=== PATIENT | male | born 1960 | race Caucasian/White ===

== ENCOUNTER 2020-03-22 11:13 | Inpatient (IN) | payer OTHER ==
[~2020-03-22] VITALS: Ht 180.3 cm; Wt 67.4 kg
[2020-03-22 12:14] LABS: BASOPHILS % (AUTO) 0.6 % (0.0-2.0); EOSINOPHILS % (AUTO) 0.1 % (1.0-6.0); HEMATOCRIT 42.1 % (41-53); LYMPHOCYTES # (AUTO) 0.8 K/uL (1.0-4.8); LYMPHOCYTES % (AUTO) 17.1 % (22.0-44.0); MEAN CORPUSCULAR HGB CONC 33.2 G/dL (31.0-37.0); MEAN CORPUSCULAR VOLUME 102 fL (80-100); MONOCYTES # (AUTO) 0.6 K/uL (0.1-1.0); MONOCYTES % (AUTO) 12.4 % (2.0-9.0); NEUTROPHILS # (AUTO) 3.4 K/uL (1.8-7.7); NEUTROPHILS % (AUTO) 69.8 % (40.0-70.0); RED BLOOD CELL COUNT(AUTO) 4.11 MIL/uL (4.50-5.90); RED CELL DISTRIBUTION WIDTH 13.9 % (11.5-14.5)
[2020-03-22 12:24] LABS: ANION GAP 16 mmol/L (8-16); CALCIUM, TOTAL 8.4 mg/dL (8.8-10.5); CARBON DIOXIDE 25 mmol/L (22-29); CHLORIDE 103 mmol/L (98-107); CREATININE 0.79 mg/dL (0.60-1.30); GLOMERULAR FILTR. RATE CALC > 60 mL/min (>60); GLUCOSE,RANDOM 98 mg/dL (70-110); POTASSIUM 3.9 mmol/L (3.5-5.1); SODIUM SERUM 144 mmol/L (136-145); UREA NITROGEN, BLOOD 17 mg/dL (7-18)
[2020-03-22 12:37] LABS: AMPHET/METH SCREEN,URINE NEGATIVE (NEGATIVE); BARBITURATE SCREEN, URINE NEGATIVE (NEGATIVE); BENZODIAZEPINES SCREEN,URINE NEGATIVE (NEGATIVE); CANNABINOID SCREEN,URINE NEGATIVE (NEGATIVE); COCAINE SCREEN,URINE NEGATIVE (NEGATIVE); METHADONE SCREEN, URINE NEGATIVE (NEGATIVE); OPIATE SCREEN,URINE POSITIVE (NEGATIVE)
[2020-03-22 12:39] LABS: PHENCYCLIDINE SCREEN,URINE NEGATIVE (NEGATIVE)
[2020-03-22 12:43] LABS: PLATELET COUNT (AUTO) 72 K/uL (150-450)
[2020-03-22 12:49] LABS: ALANINE AMINOTRANSFERASE 185 U/L (12-78); ALKALINE PHOSPHATASE 231 U/L (46-116); ASPARTATE AMINOTRANSFERASE 526 U/L (15-37); BILIRUBIN,TOTAL 2.3 mg/dL (0.1-1.0); TOTAL PROTEIN, SERUM 7.7 g/dL (6.4-8.2)
[2020-03-22 12:53] LABS: CREATINE KINASE, TOTAL ONLY 1115 U/L (39-308)
[2020-03-22] MEDS ORDERED: LOPERAMIDE HCL 2 MG CAPSULE PO PRN ×2 (14:00)
[2020-03-22] MEDS ORDERED: TUBERCULIN, PURIFIED PROTEIN DERIVATIVE 5 TU/0.1 ML SYRINGE ID ONE (14:00)
[2020-03-22] MEDS ORDERED: MAG HYDROX/AL HYDROX/SIMETH ES 30 ML SUSPENSION UDCUP PO PRN (14:00)
[2020-03-22] MEDS ORDERED: MAGNESIUM HYDROXIDE SUSPENSION 30 ML UDCUP PO PRN (14:00)
[2020-03-22] MEDS ORDERED: CYANOCOBALAMIN 1,000 MCG/ML VIAL IM ONE (14:00)
[2020-03-22] MEDS ORDERED: GuaiFENesin/D-METHORPHAN [SUGAR-FREE] 200-20MG/10 ML SYRUP UDCUP PO PRN (14:00)
[2020-03-22] MEDS ORDERED: PROMETHAZINE HCL 25 MG TABLET PO PRN (14:00)
[2020-03-22] MEDS ORDERED: LORazepam 1 MG TABLET PO ONE ×2 (14:15)
[2020-03-22] MEDS ORDERED: KETOROLAC TROMETHAMINE 10 MG TABLET PO ONE ×2 (14:15)
[2020-03-22] MEDS: THIAMINE 100 MG TABLET PO SCH (20:02)
[2020-03-22] MEDS: LORazepam 2 MG TABLET PO PRN (20:24)
[2020-03-22 21:30] VITALS: BP 134/87
[2020-03-22] MEDS: MIRTAZAPINE 15 MG TABLET PO SCH (22:04)
[2020-03-22 22:30] VITALS: BP 138/90
[2020-03-22 23:30] VITALS: BP 115/72
[2020-03-23] VITALS (10 sets, daily range): BP systolic 117–149; BP diastolic 66–79
[2020-03-23] MEDS: LORazepam 2 MG TABLET PO PRN ×2 (01:03→11:15)
[2020-03-23 07:38] LABS: INR 1.1 (0.9-1.1); PROTHROMBIN TIME 11.4 SEC (9.4-11.6)
[2020-03-23 07:53] LABS: ALANINE AMINOTRANSFERASE 144 U/L (12-78); ALBUMIN 3.6 g/dL (3.4-5.0); ALKALINE PHOSPHATASE 206 U/L (46-116); ANION GAP 9 mmol/L (8-16); ASPARTATE AMINOTRANSFERASE 374 U/L (15-37); BILIRUBIN,TOTAL 2.8 mg/dL (0.1-1.0); CALCIUM, TOTAL 8.9 mg/dL (8.8-10.5); CARBON DIOXIDE 28 mmol/L (22-29); CHLORIDE 99 mmol/L (98-107); CHOL/HDL RATIO 2.9 (4.2-7.3); CHOLESTEROL 206 mg/dL (131-200); FREE T4 (FREE THYROXINE) 1.21 ng/dL (0.76-1.46); GLOMERULAR FILTR. RATE CALC > 60 mL/min (>60); GLUCOSE,RANDOM 111 mg/dL (70-110); HDL CHOLESTEROL 70 mg/dL (40-60); LDL CHOL (CALC.) 115 mg/dL (0-130); POTASSIUM 3.4 mmol/L (3.5-5.1); SODIUM SERUM 136 mmol/L (136-145); THYROID STIMULATING HORMONE 1.67 uIU/mL (0.36-3.74); TOTAL PROTEIN, SERUM 6.9 g/dL (6.4-8.2); TRIGLYCERIDES 107 mg/dL (15-150); UREA NITROGEN, BLOOD 14 mg/dL (7-18)
[2020-03-23] MEDS: THIAMINE 100 MG TABLET PO SCH ×2 (09:56→17:31)
[2020-03-23] MEDS: MULTIVITAMINS WITH MINERALS, THERAPEUTIC TABLET PO SCH (09:56)
[2020-03-23] MEDS: FOLIC ACID 1 MG TABLET PO SCH (09:56)
[2020-03-23] MEDS: NALTREXONE HCL 50 MG TABLET PO SCH (09:57)
[2020-03-23] MEDS: LORazepam 2 MG TABLET PO SCH ×4 (09:58→21:13)
[2020-03-23] MEDS: ACETAMINOPHEN 325 MG TABLET PO PRN (11:12)
[2020-03-23] MEDS: HydrOXYzine PAMOATE 50 MG CAPSULE PO PRN (13:31)
[2020-03-23] MEDS: QUEtiapine FUMARATE 100 MG TABLET PO PRN (13:31)
[2020-03-23] MEDS ORDERED: CYANOCOBALAMIN 1,000 MCG/ML VIAL IM ONE (15:00)
[2020-03-23] MEDS ORDERED: CloNIDine HCL 0.1 MG TABLET PO PRN (15:00)
[2020-03-23] MEDS: MIRTAZAPINE 15 MG TABLET PO SCH (21:14)
[2020-03-24] VITALS (7 sets, daily range): BP systolic 125–141; BP diastolic 75–89
[2020-03-24] MEDS: LORazepam 2 MG TABLET PO PRN (01:59)
[2020-03-24] MEDS: QUEtiapine FUMARATE 100 MG TABLET PO PRN (07:30)
[2020-03-24] MEDS: LORazepam 2 MG TABLET PO SCH ×4 (07:30→20:39)
[2020-03-24] MEDS: NALTREXONE HCL 50 MG TABLET PO SCH (07:30)
[2020-03-24] MEDS: THIAMINE 100 MG TABLET PO SCH ×2 (07:30→16:42)
[2020-03-24] MEDS: MULTIVITAMINS WITH MINERALS, THERAPEUTIC TABLET PO SCH (07:30)
[2020-03-24] MEDS: HydrOXYzine PAMOATE 50 MG CAPSULE PO PRN (07:30)
[2020-03-24] MEDS: FOLIC ACID 1 MG TABLET PO SCH (07:30)
[2020-03-24] MEDS: PANTOPRAZOLE SODIUM 40 MG DR TABLET PO SCH (07:31)
[2020-03-24] MEDS ORDERED: FOLIC ACID 1 MG TABLET PO SCH (09:00)
[2020-03-24] MEDS ORDERED: THIAMINE 100 MG TABLET PO SCH (09:00)
[2020-03-24] MEDS ORDERED: MIRTAZAPINE 15 MG TABLET PO SCH (21:00)
[2020-03-25] MEDS ORDERED: LORazepam 1 MG TABLET PO PRN (07:00)
[2020-03-25 08:06] LABS: ALANINE AMINOTRANSFERASE 128 U/L (12-78); ALBUMIN 3.7 g/dL (3.4-5.0); ALKALINE PHOSPHATASE 213 U/L (46-116); ANION GAP 15 mmol/L (8-16); ASPARTATE AMINOTRANSFERASE 200 U/L (15-37); CALCIUM, TOTAL 9.2 mg/dL (8.8-10.5); CARBON DIOXIDE 23 mmol/L (22-29); CHLORIDE 104 mmol/L (98-107); CREATININE 0.78 mg/dL (0.60-1.30); GLOMERULAR FILTR. RATE CALC > 60 mL/min (>60); GLUCOSE,RANDOM 109 mg/dL (70-110); POTASSIUM 3.5 mmol/L (3.5-5.1); SODIUM SERUM 142 mmol/L (136-145); TOTAL PROTEIN, SERUM 6.9 g/dL (6.4-8.2); UREA NITROGEN, BLOOD 16 mg/dL (7-18)
[2020-03-25] MEDS: MULTIVITAMINS WITH MINERALS, THERAPEUTIC TABLET PO SCH (08:32)
[2020-03-25] MEDS: THIAMINE 100 MG TABLET PO SCH ×2 (08:32→16:33)
[2020-03-25] MEDS: FOLIC ACID 1 MG TABLET PO SCH (08:32)
[2020-03-25] MEDS: PANTOPRAZOLE SODIUM 40 MG DR TABLET PO SCH (08:32)
[2020-03-25] MEDS: NALTREXONE HCL 50 MG TABLET PO SCH (08:32)
[2020-03-25] MEDS: LORazepam 1 MG TABLET PO SCH ×4 (08:33→20:41)
[2020-03-25 08:57] VITALS: BP 110/67
[2020-03-25 08:59] VITALS: BP 110/67
[2020-03-25 09:01] VITALS: BP 110/67
[2020-03-25 13:10] VITALS: BP 106/73
[2020-03-25] MEDS: ACETAMINOPHEN 325 MG TABLET PO PRN (13:10)
[2020-03-25 17:23] VITALS: BP 102/69
[2020-03-25 18:00] VITALS: BP 106/71
[2020-03-26 00:31] VITALS: BP 116/76
[2020-03-26] MEDS: ZOLPIDEM TARTRATE 10 MG TABLET PO PRN (00:35)
[2020-03-26] MEDS: ACETAMINOPHEN 325 MG TABLET PO PRN (00:35)
[2020-03-26 08:21] LABS: ALANINE AMINOTRANSFERASE 95 U/L (12-78); ALBUMIN 3.4 g/dL (3.4-5.0); ALKALINE PHOSPHATASE 185 U/L (46-116); ANION GAP 13 mmol/L (8-16); ASPARTATE AMINOTRANSFERASE 117 U/L (15-37); BILIRUBIN,TOTAL 2.5 mg/dL (0.1-1.0); CALCIUM, TOTAL 8.8 mg/dL (8.8-10.5); CARBON DIOXIDE 24 mmol/L (22-29); CHLORIDE 105 mmol/L (98-107); CREATINE KINASE, TOTAL ONLY 171 U/L (39-308); CREATININE 0.73 mg/dL (0.60-1.30); GLOMERULAR FILTR. RATE CALC > 60 mL/min (>60); GLUCOSE,RANDOM 93 mg/dL (70-110); SODIUM SERUM 142 mmol/L (136-145); TOTAL PROTEIN, SERUM 7.1 g/dL (6.4-8.2); UREA NITROGEN, BLOOD 17 mg/dL (7-18)
[2020-03-26 08:29] VITALS: BP 134/70
[2020-03-26] MEDS ORDERED: POTASSIUM CHLORIDE 10% 40 MEQ/30 ML LIQUID UDCUP PO ONE (08:45)
[2020-03-26 09:44] VITALS: BP 112/71
[2020-03-26] MEDS: NALTREXONE HCL 50 MG TABLET PO SCH (10:18)
[2020-03-26] MEDS: THIAMINE 100 MG TABLET PO SCH ×2 (10:22→16:12)
[2020-03-26] MEDS: PANTOPRAZOLE SODIUM 40 MG DR TABLET PO SCH (10:23)
[2020-03-26] MEDS: QUEtiapine FUMARATE 100 MG TABLET PO PRN (10:23)
[2020-03-26] MEDS: MULTIVITAMINS WITH MINERALS, THERAPEUTIC TABLET PO SCH (10:23)
[2020-03-26] MEDS: FOLIC ACID 1 MG TABLET PO SCH (10:23)
[2020-03-26] MEDS: LORazepam 1 MG TABLET PO PRN ×2 (10:23→16:12)
[2020-03-26] MEDS: HydrOXYzine PAMOATE 50 MG CAPSULE PO PRN (10:23)
[2020-03-26 16:06] VITALS: BP 107/66
[2020-03-26 16:07] VITALS: BP 107/66
[2020-03-26] MEDS: ACAMPROSATE CALCIUM 333 MG DR TABLET PO SCH (17:47)
[2020-03-26] MEDS: GABAPENTIN 300 MG CAPSULE PO SCH ×2 (17:47→20:26)
[2020-03-26] MEDS: MIRTAZAPINE 15 MG TABLET PO SCH (20:26)
[2020-03-27 06:23] VITALS: BP 103/60
[2020-03-27 06:24] VITALS: BP 103/60
[2020-03-27 08:54] VITALS: BP 102/61
[2020-03-27] MEDS: MULTIVITAMINS WITH MINERALS, THERAPEUTIC TABLET PO SCH (10:28)
[2020-03-27] MEDS: NALTREXONE HCL 50 MG TABLET PO SCH (10:28)
[2020-03-27] MEDS: PANTOPRAZOLE SODIUM 40 MG DR TABLET PO SCH (10:28)
[2020-03-27] MEDS: ACAMPROSATE CALCIUM 333 MG DR TABLET PO SCH ×3 (10:28→16:02)
[2020-03-27] MEDS: GABAPENTIN 300 MG CAPSULE PO SCH ×4 (10:28→20:34)
[2020-03-27] MEDS: THIAMINE 100 MG TABLET PO SCH ×2 (10:28→15:55)
[2020-03-27] MEDS: FOLIC ACID 1 MG TABLET PO SCH (10:31)
[2020-03-27 16:33] VITALS: BP 130/74
[2020-03-27] MEDS: MIRTAZAPINE 15 MG TABLET PO SCH (20:33)
[2020-03-27] MEDS: ZOLPIDEM TARTRATE 10 MG TABLET PO PRN (23:53)
[2020-03-28 00:01] VITALS: BP 112/76
[2020-03-28] MEDS: ACAMPROSATE CALCIUM 333 MG DR TABLET PO SCH ×3 (08:41→17:33)
[2020-03-28] MEDS: FOLIC ACID 1 MG TABLET PO SCH (08:41)
[2020-03-28] MEDS: MULTIVITAMINS WITH MINERALS, THERAPEUTIC TABLET PO SCH (08:41)
[2020-03-28] MEDS: THIAMINE 100 MG TABLET PO SCH ×2 (08:41→17:33)
[2020-03-28] MEDS: NALTREXONE HCL 50 MG TABLET PO SCH (08:41)
[2020-03-28] MEDS: PANTOPRAZOLE SODIUM 40 MG DR TABLET PO SCH (08:41)
[2020-03-28] MEDS: GABAPENTIN 300 MG CAPSULE PO SCH ×4 (08:43→20:04)
[2020-03-28 09:04] VITALS: BP 104/78
[2020-03-28] MEDS: ACETAMINOPHEN 325 MG TABLET PO PRN (09:04)
[2020-03-28 09:24] VITALS: BP 99/56
[2020-03-28 16:08] VITALS: BP 100/67
[2020-03-28] MEDS: MIRTAZAPINE 15 MG TABLET PO SCH (20:04)
[2020-03-29] MEDS: ZOLPIDEM TARTRATE 10 MG TABLET PO PRN
[2020-03-29 00:03] VITALS: BP 118/76
[2020-03-29] MEDS: ACETAMINOPHEN 325 MG TABLET PO PRN (00:04)
[2020-03-29 08:02] VITALS: BP 119/75
[2020-03-29] MEDS: PANTOPRAZOLE SODIUM 40 MG DR TABLET PO SCH (09:43)
[2020-03-29] MEDS: FOLIC ACID 1 MG TABLET PO SCH (09:43)
[2020-03-29] MEDS: GABAPENTIN 300 MG CAPSULE PO SCH ×2 (09:43→12:02)
[2020-03-29] MEDS: THIAMINE 100 MG TABLET PO SCH (09:43)
[2020-03-29] MEDS: NALTREXONE HCL 50 MG TABLET PO SCH (09:43)
[2020-03-29] MEDS: MULTIVITAMINS WITH MINERALS, THERAPEUTIC TABLET PO SCH (09:43)
[2020-03-29] MEDS: ACAMPROSATE CALCIUM 333 MG DR TABLET PO SCH ×2 (09:44→12:02)
[2020-03-29] MEDS: QUEtiapine FUMARATE 100 MG TABLET PO PRN (13:45)
[2020-03-29 13:50] VITALS: BP 119/92
[2020-03-29] MEDS ORDERED: PANT-31 PO (14:14)
[2020-03-29] MEDS ORDERED: MIRT-89 PO (15:01)
[2020-03-29] MEDS ORDERED: ACAM333T7 PO (15:01)
[2020-03-29] MEDS ORDERED: NALT50TA PO (15:01)
== END 2020-03-29 16:45 | disposition home or self-care (01) | DRG 885 ==
LOC: EMS 11:15 → 3EC 18:33 → 3EI 03-28 08:30
PROVIDERS: ADMIT Psychiatry & Neurology Psychiatry; ATTEND Psychiatry & Neurology Psychiatry
DX: F33.2 Major depressive disorder, recurrent severe without psychotic features (principal); G93.40 Encephalopathy, unspecified; M62.82 Rhabdomyolysis; D75.89 Other specified diseases of blood and blood-forming organs; E87.6 Hypokalemia; F12.90 Cannabis use, unspecified, uncomplicated; F17.210 Nicotine dependence, cigarettes, uncomplicated; K70.10 Alcoholic hepatitis without ascites; Z91.19 Patient's noncompliance with other medical treatment and regimen; R00.0 Tachycardia, unspecified
CPT/HCPCS: 70450; 71111; 76700; 80074; 83036; 83735; 84439; 84443; 86592; 92610; 93005; G0480; J3420

== ENCOUNTER 2020-07-20 15:58 | Emergency (ER) | payer OTHER ==
[~2020-07-20] VITALS: Ht 180.3 cm; Wt 72.7 kg
[~2020-07-20 15:58] MED LIST: ACAM333T7 PO; MIRT-89 PO; NALT50TA PO; PANT-31 PO
[2020-07-20 20:22] LABS: BASOPHILS % (AUTO) 1.3 % (0.0-2.0); HEMATOCRIT 43.7 % (41-53); HEMOGLOBIN 14.2 g/dL (13.5-17.5); LYMPHOCYTES # (AUTO) 1.5 K/uL (1.0-4.8); LYMPHOCYTES % (AUTO) 24.7 % (22.0-44.0); MEAN CORPUSCULAR HEMOGLOBIN 33.8 pg (26.0-34.0); MEAN CORPUSCULAR HGB CONC 32.5 G/dL (31.0-37.0); MEAN CORPUSCULAR VOLUME 104 fL (80-100); MONOCYTES # (AUTO) 0.9 K/uL (0.1-1.0); MONOCYTES % (AUTO) 15.5 % (2.0-9.0); NEUTROPHILS # (AUTO) 3.4 K/uL (1.8-7.7); NEUTROPHILS % (AUTO) 57.5 % (40.0-70.0); PLATELET COUNT (AUTO) 259 K/uL (150-450); RED BLOOD CELL COUNT(AUTO) 4.21 MIL/uL (4.50-5.90); RED CELL DISTRIBUTION WIDTH 16.1 % (11.5-14.5)
[2020-07-20 20:45] LABS: ANION GAP 6 mmol/L (8-16); CALCIUM, TOTAL 9.3 mg/dL (8.8-10.5); CARBON DIOXIDE 31 mmol/L (22-29); CHLORIDE 106 mmol/L (98-107); CREATININE 0.95 mg/dL (0.60-1.30); GLOMERULAR FILTR. RATE CALC > 60 mL/min (>60); GLUCOSE,RANDOM 114 mg/dL (70-110); POTASSIUM 4.2 mmol/L (3.5-5.1); SODIUM SERUM 143 mmol/L (136-145); UREA NITROGEN, BLOOD 7 mg/dL (7-18)
[2020-07-20 20:51] LABS: ALANINE AMINOTRANSFERASE 121 U/L (12-78); ALBUMIN 3.9 g/dL (3.4-5.0); ALKALINE PHOSPHATASE 193 U/L (46-116); ASPARTATE AMINOTRANSFERASE 163 U/L (15-37); BILIRUBIN,TOTAL 0.7 mg/dL (0.1-1.0); TOTAL PROTEIN, SERUM 7.9 g/dL (6.4-8.2)
[2020-07-20 21:25] LABS: AMPHET/METH SCREEN,URINE NEGATIVE (NEGATIVE); BARBITURATE SCREEN, URINE NEGATIVE (NEGATIVE); BENZODIAZEPINES SCREEN,URINE POSITIVE (NEGATIVE); CANNABINOID SCREEN,URINE NEGATIVE (NEGATIVE); COCAINE SCREEN,URINE NEGATIVE (NEGATIVE); METHADONE SCREEN, URINE NEGATIVE (NEGATIVE); OPIATE SCREEN,URINE POSITIVE (NEGATIVE)
[2020-07-20 21:30] LABS: PHENCYCLIDINE SCREEN,URINE NEGATIVE (NEGATIVE)
[2020-07-20 21:35] VITALS: BP 137/96
== END 2020-07-20 21:44 | disposition home or self-care (01) ==
LOC: EMS 15:59
DX: F32.9 Major depressive disorder, single episode, unspecified (principal); F10.129 Alcohol abuse with intoxication, unspecified; Y90.7 Blood alcohol level of 200-239 mg/100 ml
CPT/HCPCS: 36415; 80053; 80307; 85025; 99285; G0480

== ENCOUNTER 2021-07-06 00:14 | Emergency (ER) | payer OTHER ==
[~2021-07-06] VITALS: Ht 182.9 cm; Wt 75.0 kg
[2021-07-06 01:46] LABS: EOSINOPHILS % (AUTO) 6.3 % (1.0-6.0); HEMATOCRIT 32.7 % (41-53); HEMOGLOBIN 10.9 g/dL (13.5-17.5); LYMPHOCYTES # (AUTO) 2.1 K/uL (1.0-4.8); LYMPHOCYTES % (AUTO) 27.7 % (22.0-44.0); MEAN CORPUSCULAR HEMOGLOBIN 32.9 pg (26.0-34.0); MEAN CORPUSCULAR HGB CONC 33.2 G/dL (31.0-37.0); MEAN CORPUSCULAR VOLUME 99 fL (80-100); MONOCYTES % (AUTO) 13.5 % (2.0-9.0); NEUTROPHILS # (AUTO) 3.8 K/uL (1.8-7.7); NEUTROPHILS % (AUTO) 51.5 % (40.0-70.0); PLATELET COUNT (AUTO) 156 K/uL (150-450); RED CELL DISTRIBUTION WIDTH 13.2 % (11.5-14.5)
[2021-07-06 01:53] LABS: ANION GAP 7 mmol/L (8-16); CALCIUM, TOTAL 8.6 mg/dL (8.8-10.5); CARBON DIOXIDE 28 mmol/L (22-29); CHLORIDE 106 mmol/L (98-107); CREATININE 0.92 mg/dL (0.60-1.30); GLOMERULAR FILTR. RATE CALC > 60 mL/min (>60); GLUCOSE,RANDOM 93 mg/dL (70-110); POTASSIUM 3.8 mmol/L (3.5-5.1); SODIUM SERUM 141 mmol/L (136-145); UREA NITROGEN, BLOOD 12 mg/dL (7-18)
[2021-07-06 01:58] LABS: ALANINE AMINOTRANSFERASE 28 U/L (12-78); ALBUMIN 2.7 g/dL (3.4-5.0); ALKALINE PHOSPHATASE 99 U/L (46-116); ASPARTATE AMINOTRANSFERASE 31 U/L (15-37); BILIRUBIN,TOTAL 0.4 mg/dL (0.1-1.0); TOTAL PROTEIN, SERUM 6.7 g/dL (6.4-8.2)
[2021-07-06 02:24] LABS: COVID AG,FIA SOURCE NASOPHARYNGEAL
[2021-07-06 02:42] VITALS: BP 119/77
[2021-07-06] MEDS ORDERED: IBUPROFEN 800 MG TABLET PO ONE (02:45)
== END 2021-07-06 03:00 | disposition home or self-care (01) ==
LOC: EMS 00:15
DX: M72.2 Plantar fascial fibromatosis (principal); F48.1 Depersonalization-derealization syndrome; F10.10 Alcohol abuse, uncomplicated; Y90.0 Blood alcohol level of less than 20 mg/100 ml; Z20.822 Contact with and (suspected) exposure to COVID-19
CPT/HCPCS: 36415; 80053; 85025; 87426; 99283; G0480

== ENCOUNTER 2021-10-20 13:55 | Emergency (ER) | payer OTHER ==
[~2021-10-20] VITALS: Ht 182.9 cm; Wt 79.5 kg
[2021-10-20 13:57] VITALS: BP 96/63
[2021-10-20 15:04] LABS: BASOPHILS % (AUTO) 1.1 % (0.0-2.0); EOSINOPHILS % (AUTO) 2.8 % (1.0-6.0); HEMATOCRIT 41.1 % (41-53); HEMOGLOBIN 13.8 g/dL (13.5-17.5); LYMPHOCYTES % (AUTO) 27.3 % (22.0-44.0); MEAN CORPUSCULAR HEMOGLOBIN 31.4 pg (26.0-34.0); MEAN CORPUSCULAR HGB CONC 33.6 G/dL (31.0-37.0); MEAN CORPUSCULAR VOLUME 93 fL (80-100); MONOCYTES # (AUTO) 0.8 K/uL (0.1-1.0); MONOCYTES % (AUTO) 10.3 % (2.0-9.0); NEUTROPHILS # (AUTO) 4.4 K/uL (1.8-7.7); NEUTROPHILS % (AUTO) 58.5 % (40.0-70.0); PLATELET COUNT (AUTO) 202 K/uL (150-450); RED CELL DISTRIBUTION WIDTH 13.7 % (11.5-14.5)
[2021-10-20 15:21] LABS: ANION GAP 5 mmol/L (8-16); CALCIUM, TOTAL 9.8 mg/dL (8.8-10.5); CARBON DIOXIDE 27 mmol/L (22-29); CHLORIDE 111 mmol/L (98-107); CREATININE 0.98 mg/dL (0.60-1.30); GLOMERULAR FILTR. RATE CALC > 60 mL/min (>60); GLUCOSE,RANDOM 94 mg/dL (70-110); SODIUM SERUM 143 mmol/L (136-145); UREA NITROGEN, BLOOD 16 mg/dL (7-18)
[2021-10-20 15:36] LABS: ALANINE AMINOTRANSFERASE 24 U/L (12-78); ALBUMIN 3.5 g/dL (3.4-5.0); ALKALINE PHOSPHATASE 86 U/L (46-116); ASPARTATE AMINOTRANSFERASE 30 U/L (15-37); BILIRUBIN,TOTAL 0.2 mg/dL (0.1-1.0); TOTAL PROTEIN, SERUM 7.7 g/dL (6.4-8.2)
== END 2021-10-20 17:57 | disposition home or self-care (01) ==
LOC: EMS 13:59
DX: K29.20 Alcoholic gastritis without bleeding (principal); F10.20 Alcohol dependence, uncomplicated; F17.210 Nicotine dependence, cigarettes, uncomplicated; Y90.6 Blood alcohol level of 120-199 mg/100 ml
CPT/HCPCS: 36415; 80053; 84484; 85025; 99285; G0480

== ENCOUNTER 2024-04-16 17:16 | Emergency (ER) | payer MEDICAID, OTHER ==
[~2024-04-16] VITALS: Ht 182.9 cm; Wt 80.9 kg
[~2024-04-16 17:16] MED LIST changes: -ACAM333T7 PO; +ESCI10 PO; +ESCI20TA87 PO; +GABA-1181 PO; -MIRT-89 PO; -NALT50TA PO; -PANT-31 PO
[2024-04-16 18:13] LABS: BASOPHILS % (AUTO) 0.9 % (0.0-2.0); EOSINOPHILS % (AUTO) 4.9 % (1.0-6.0); HEMATOCRIT 44.2 % (41-53); HEMOGLOBIN 14.8 g/dL (13.5-17.5); LYMPHOCYTES # (AUTO) 1.8 K/uL (1.0-4.8); LYMPHOCYTES % (AUTO) 40.5 % (22.0-44.0); MEAN CORPUSCULAR HEMOGLOBIN 34.1 pg (26.0-34.0); MEAN CORPUSCULAR HGB CONC 33.4 G/dL (31.0-37.0); MEAN CORPUSCULAR VOLUME 102 fL (80-100); MONOCYTES # (AUTO) 0.4 K/uL (0.1-1.0); MONOCYTES % (AUTO) 8.2 % (2.0-9.0); NEUTROPHILS # (AUTO) 2.1 K/uL (1.8-7.7); NEUTROPHILS % (AUTO) 45.5 % (40.0-70.0); PLATELET COUNT (AUTO) 213 K/uL (150-450); RED BLOOD CELL COUNT(AUTO) 4.33 MIL/uL (4.50-5.90); RED CELL DISTRIBUTION WIDTH 13.7 % (11.5-14.5); WHITE BLOOD COUNT (AUTO) 4.6 K/uL (4.5-11.0)
[2024-04-16 18:26] LABS: ANION GAP 4 mmol/L (8-16); CALCIUM, TOTAL 8.8 mg/dL (8.8-10.5); CARBON DIOXIDE 30 mmol/L (22-29); CHLORIDE 106 mmol/L (98-107); CREATININE 0.87 mg/dL (0.60-1.30); GLOMERULAR FILTR. RATE CALC > 60 mL/min (>60); GLUCOSE,RANDOM 97 mg/dL (70-110); POTASSIUM 3.7 mmol/L (3.5-5.1); SODIUM SERUM 140 mmol/L (136-145); UREA NITROGEN, BLOOD 12 mg/dL (7-18)
[2024-04-16 18:32] LABS: ALANINE AMINOTRANSFERASE 37 U/L (12-78); ALBUMIN 3.6 g/dL (3.4-5.0); ALKALINE PHOSPHATASE 164 U/L (46-116); ASPARTATE AMINOTRANSFERASE 47 U/L (15-37); BILIRUBIN,TOTAL 0.4 mg/dL (0.1-1.0); TOTAL PROTEIN, SERUM 8.1 g/dL (6.4-8.2)
[2024-04-16 18:34] LABS: TROPONIN I-HIGH SENSITIVITY 8 ng/L (<76)
[2024-04-16 18:37] LABS: B-TYPE NATRIURETIC PEPTIDE 14 pg/mL (0-100)
[2024-04-16 20:35] LABS: TROPONIN I-HIGH SENSITIVITY 9 ng/L (<76)
[2024-04-16 21:55] VITALS: BP 125/74; PULSE 76; RESP 18; TEMP 97.4
== END 2024-04-16 22:06 | disposition home or self-care (01) ==
LOC: EMS 17:16
DX: F10.10 Alcohol abuse, uncomplicated (principal); R07.9 Chest pain, unspecified; R56.9 Unspecified convulsions; F32.A Depression, unspecified; F17.210 Nicotine dependence, cigarettes, uncomplicated; Z87.442 Personal history of urinary calculi
CPT/HCPCS: 99285; 70450; 71045; 80053; 83880; 84484; 85025; 36415; 72125; 93005; G0480